=== PATIENT | male | born 1980 | race Two or more races ===

== ENCOUNTER 2020-01-27 07:20 | Emergency (ER) | payer MEDICAID, OTHER ==
[~2020-01-27] VITALS: Ht 182.9 cm; Wt 74.0 kg
[2020-01-27 07:54] LABS: HEMATOCRIT. 50.2 % (42.0-52.0); HEMOGLOBIN. 17.3 g/dL (14.0-18.0); MEAN CORPUSCULAR HEMOGLOBIN 31.8 pg (28.0-32.0); MEAN CORPUSCULAR VOLUME 92.3 fL (80.0-94.0); MEAN PLATELET VOLUME 7.8 fl (7.4-10.4); PLATELET 239 x1000/uL (130-400); RED BLOOD CELL COUNT 5.43 mill/uL (4.7-6.1); RED CELL DISTRIBUTION WIDTH 15.3 % (11.6-14.6)
[2020-01-27 08:03] LABS: CHLORIDE 107 mEq/L (98-107)
[2020-01-27 08:05] LABS: ETHANOL BLOOD < 10 mg/dL
[2020-01-27 08:11] VITALS: BP 94/68
[2020-01-27 08:25] LABS: PLATELET ESTIMATE NORMAL
== END 2020-01-27 10:48 | disposition home or self-care (01) ==
LOC: ER 07:20
DX: Z00.00 Encounter for general adult medical examination without abnormal findings (principal)
CPT/HCPCS: 36415; 80053; 80320; 85025; 99284; G0480